=== PATIENT | male | born 1975 | race Two or more races ===

== ENCOUNTER 2019-10-08 21:03 | Emergency (ER) | payer MEDICAID ==
[~2019-10-08] VITALS: Ht 175.3 cm; Wt 86.2 kg
--- NOTE | 2019-10-08 21:10 | NUR ---
Dr. Campbell at bedside for MSE
--- NOTE | 2019-10-08 21:11 | NUR ---
Patient ambulating with steady gait. A&O x4. c/o left shoulder pain s/p mechanical fall 30-45 mins [employer]. Patient states they installed some non slid miranda at home and came loose with the rain that caused him to fall. Patient states he landed on left shouler. 10/10 on the pain scale. Patient able to move all digits freely. pulses palpable. denies pain radiating. Speech is clear and able to make needs known / follow commands. Breathing even and unlabored. denies any cough or SOB. Denies any / GI distress. Patient's partner Mason at bedside to drive patient home
[2019-10-08] MEDS ORDERED: HYDROCODONE/APAP 10-325 MG TABLET PO ONE (21:15)
[2019-10-08] MEDS ORDERED: HYDROCODONE/APAP 10-325 MG TABLET ONE (21:17)
--- NOTE | 2019-10-08 21:49 | NUR ---
Patient discharged to home in stable conditon with friend taking patient home. Written and verbal after care instructions given. Patient verbalizes understanding of instructions. Walked out of ER with no distress noted.
[2019-10-08 21:50] VITALS: BP 148/90
== END 2019-10-08 21:51 | disposition home or self-care (01) ==
LOC: ER 21:03
DX: S49.92XA Unspecified injury of left shoulder and upper arm, initial encounter (principal); Z79.899 Other long term (current) drug therapy; W01.0XXA Fall on same level from slipping, tripping and stumbling without subsequent striking against object, initial encounter; Y93.89 Activity, other specified; Y92.89 Other specified places as the place of occurrence of the external cause; Y99.8 Other external cause status
CPT/HCPCS: 73030; A4663

== ENCOUNTER 2019-11-26 23:18 | Emergency (ER) | payer MEDICAID, OTHER ==
[~2019-11-26] VITALS: Ht 175.3 cm; Wt 85.7 kg
[~2019-11-26 23:18] MED LIST: ELVI1TAB3 PO; LOSA100T31 PO
--- NOTE | 2019-11-27 00:04 | NUR ---
DR. OSORIO AT BEDSIDE FOR MSE
[2019-11-27] MEDS ORDERED: NEOMY/BACITRA/POLYMYXIN B OINT UD PACKET TP ONE ×2 (00:13→00:15)
[2019-11-27] MEDS ORDERED: LET TOPICAL SOLUTION 8 ML UDC ONE ×2 (00:14→00:38)
[2019-11-27] MEDS ORDERED: HYDROCODONE/APAP 10-325 MG TABLET ONE (00:14)
[2019-11-27] MEDS ORDERED: HYDROCODONE/APAP 10-325 MG TABLET PO ONE (00:15)
[2019-11-27] MEDS ORDERED: SODIUM BICARBONATE 4.2 % (NEUT) 5 ML VIAL TP ONE (00:15)
[2019-11-27] MEDS ORDERED: LET TOPICAL SOLUTION 8 ML UDC TP ONE (00:15)
[2019-11-27] MEDS ORDERED: LIDOCAINE HCL 2% 20 ML VIAL TP ONE (00:15)
[2019-11-27] MEDS ORDERED: LIDOCAINE HCL 2% 20 ML VIAL ONE (00:16)
[2019-11-27] MEDS ORDERED: SODIUM BICARBONATE 4.2 % (NEUT) 5 ML VIAL ONE (00:16)
--- NOTE | 2019-11-27 00:25 | NUR ---
PATIENT OUT OF ER FOR CT
--- NOTE | 2019-11-27 00:36 | NUR ---
PATIENT BACK FROM CT
--- NOTE | 2019-11-27 01:20 | NUR ---
patient states pain improved. 12/01. [place] reassessment not done due to time minimum.
--- NOTE | 2019-11-27 01:21 | NUR ---
Patient discharged to home in stable condition. Written and verbal after care instructions given. Patient verbalizes understanding of instructions. Stressed follow up or return to ER for worsening s/s. Ambulatory with steady gait. So s/s of distress. Instructed patient not to drive. Patient stated his partner will drive him home.
[2019-11-27 01:26] VITALS: BP 138/95
== END 2019-11-27 01:21 | disposition home or self-care (01) ==
LOC: ER 23:24
PROC: 0HQ0XZZ Repair Scalp Skin, External Approach (ICD-10-PCS; principal; 2019-11-26)
DX: S01.01XA Laceration without foreign body of scalp, initial encounter (principal); W01.198A Fall on same level from slipping, tripping and stumbling with subsequent striking against other object, initial encounter; Y92.89 Other specified places as the place of occurrence of the external cause; R40.2412 Glasgow coma scale score 13-15, at arrival to emergency department; S00.81XA Abrasion of other part of head, initial encounter; R51 Headache; M50.323 Other cervical disc degeneration at C6-C7 level
CPT/HCPCS: 12001; 70450; 72125; 99285; J3490 ×2; A4217; L8699

== ENCOUNTER 2019-12-02 22:58 | Emergency (ER) | payer OTHER ==
[~2019-12-02] VITALS: Ht 175.3 cm; Wt 83.5 kg
--- NOTE | 2019-12-02 23:28 | NUR ---
ERMD removed x3 christina from patients head.
[2019-12-02 23:29] VITALS: BP 138/79
--- NOTE | 2019-12-02 23:29 | NUR ---
Patient discharged to home in stable condition. Written and verbal after care instructions given. Patient verbalizes understanding of instructions. Stressed follow up or return to ER for worsening s/s.
== END 2019-12-02 23:29 | disposition home or self-care (01) ==
LOC: ER 22:59
DX: S01.01XD Laceration without foreign body of scalp, subsequent encounter (principal); W22.8XXD Striking against or struck by other objects, subsequent encounter
CPT/HCPCS: A4663

== ENCOUNTER 2020-09-21 18:52 | Emergency (ER) | payer OTHER ==
[~2020-09-21] VITALS: Ht 175.3 cm; Wt 78.0 kg
[~2020-09-21 18:52] MED LIST changes: +METH100P21 MC; +[UNRECOGNIZED DRUG - CODE] PO
[2020-09-21] MEDS ORDERED: OXYC-121 PO (19:28)
[2020-09-21] MEDS ORDERED: OXYCODONE/APAP 5-325 MG TABLET PO ONE (19:30)
[2020-09-21] MEDS ORDERED: OXYCODONE/APAP 5-325 MG TABLET ONE (19:53)
[2020-09-21 20:08] VITALS: BP 150/96
== END 2020-09-21 20:08 | disposition home or self-care (01) ==
LOC: ER 19:01
DX: S62.307A Unspecified fracture of fifth metacarpal bone, left hand, initial encounter for closed fracture (principal); W18.30XA Fall on same level, unspecified, initial encounter; Y92.89 Other specified places as the place of occurrence of the external cause
CPT/HCPCS: 73130; A4663

== ENCOUNTER 2021-04-29 19:48 | Emergency (ER) | payer SELFPAY ==
[~2021-04-29 19:48] MED LIST changes: +OXYC-121 PO
== END 2021-04-29 21:30 | disposition left against medical advice (07) ==
LOC: ER 19:49
DX: Z53.21 Procedure and treatment not carried out due to patient leaving prior to being seen by health care provider (principal)

== ENCOUNTER 2023-03-15 18:16 | Emergency (ER) | payer OTHER ==
[~2023-03-15] VITALS: Ht 175.3 cm; Wt 81.6 kg
[2023-03-15] MEDS ORDERED: SULF1TAB48 PO (18:58)
[2023-03-15] MEDS ORDERED: CEPH500T PO (18:58)
[2023-03-15] MEDS ORDERED: CEFTRIAXONE 1 G VIAL IM ONE (19:00)
[2023-03-15] MEDS ORDERED: SULFAMETH/TRIMETH 800/160 MG TABLET PO ONE (19:00)
[2023-03-15] MEDS ORDERED: CEFTRIAXONE 1 G VIAL ONE (19:02)
[2023-03-15] MEDS ORDERED: LIDOCAINE HCL 1% 20 ML VIAL ONE (19:03)
[2023-03-15] MEDS ORDERED: SULFAMETH/TRIMETH 800/160 MG TABLET ONE (19:03)
[2023-03-15 19:23] VITALS: BP 144/92; TEMP 98.2; O2SAT 99
== END 2023-03-15 19:24 | disposition home or self-care (01) ==
LOC: ER 18:18
DX: L03.314 Cellulitis of groin (principal); L98.499 Non-pressure chronic ulcer of skin of other sites with unspecified severity; Z79.899 Other long term (current) drug therapy
CPT/HCPCS: 99283; 96372; J0696; J3490; A4663